=== PATIENT | male | born 1970 | race Caucasian/White ===

== ENCOUNTER 2019-04-06 13:46 | Emergency (ER) | payer SELFPAY ==
[2019-04-06 13:54] VITALS: BMI 32.5
[2019-04-06] MEDS ORDERED: LACTATED RINGERS SOLUTION 1000 ML INFUS.BAG IV ONE (14:10)
[2019-04-06] MEDS ORDERED: FAMOTIDINE 20 MG/50 ML IVPB 20 MG/50 ML MG IVPB ONE ×2 (14:10)
[2019-04-06] MEDS ORDERED: methylPREDNISolone NA SUCC 125 MG/2 ML VIAL ONE (14:10)
[2019-04-06] MEDS ORDERED: methylPREDNISolone NA SUCC 125 MG/2 ML VIAL IVPUSH ONE (14:10)
[2019-04-06] MEDS ORDERED: ALBUTEROL SO4 0.083% IH SOL 2.5 MG/3 ML VIAL.NEB. NEB ONE ×2 (14:11→14:15)
--- NOTE | 2019-04-06 14:40 | EKG ---
Test Reason : Blood Pressure : / mmHG Vent. Rate : 097 BPM Atrial Rate : 097 BPM P-R Int : 178 ms QRS Dur : 092 ms QT Int : 368 ms P-R-T Axes : 029 048 008 degrees QTc Int : 467 ms NORMAL SINUS RHYTHM NORMAL ECG NO PREVIOUS ECGS AVAILABLE Confirmed by MD AVA, DEIDRE ([id number]) on 04/06/2019 2:39:58 PM Referred By: Confirmed By:DEIDRE ESCALANTE MD
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
[2019-04-06 14:45] LABS: BASO % 1.2 % (0-2.0); EOS % 2.4 % (0-4.5); HEMOGLOBIN 15.6 GM/dL (11.7-16.9); LYMPH % 28.8 % (8-40); MCH 31.5 pg (25.7-33.7); MEAN CELL VOLUME 92.5 fl (80-96); MEAN PLT VOLUME 8.1 fl (7.5-11.1); MONO % 5.6 % (3.8-10.2); PLATELET COUNT 356 K/MM3 (134-434); RBC 4.97 M/mm3 (4.00-5.60); RDW 13.7 % (11.9-15.9); WHITE BLOOD COUNT 9.9 K/mm3 (4.0-10.0)
--- NOTE | 2019-04-06 14:55 | PDOC ---
Attending Attestation - Resident Resident Name: Jordan - ED Attending Attestation I have performed the following: I have examined & evaluated the patient, The case was reviewed & discussed with the resident, I agree w/resident's findings & plan - HPI HPI: 04/06/19 15:44 48-year-old male with history of chronic back pain from lumbar disc disease, bradycardia, lymes disease, and HTN(not on medication) presenting with anterior chest pain and rash that developed this morning. He was recently started on gabapentin which she has been taking as directed since yesterday. This morning he started developing aches in his knees and then progressed to a rash on his torso, associated with changes in his voice which is deeper to him. No shortness of breath, no nausea vomiting or diarrhea, no headache or dizziness. No fevers or chills. 04/06/19 16:56 - Physicial Exam PE: 04/06/19 14:54 Vital Signs Temp Pulse Resp BP Pulse Ox 98.1 F 90 18 145/109 H 100 04/06/19 13:50 04/06/19 14:47 04/06/19 14:47 04/06/19 14:47 04/06/19 14:47 Agree with the resident's HPI and PE as documented in the electronic medical record. NAD, well appearing, EOMI, PERRL, nl conjunctiva, anicteric; airway intact, normal phonation, uvula midline. no tonsillar hypertrophy. neck supple. lungs clear, no wheezing. +tachy, no murmur. abdomen soft nontender. no rebound, guarding. Back nontender. RAMOS x4, no focal neuro deficits. No peripheral edema. normal color for ethnicity, WWP. maculopapular rash over chest/torso, lower legs on thighs. small superficial abrasions on the left anterior benavides. 04/06/19 14:54 04/06/19 18:19 - Medical Decision Making 04/06/19 15:44 Vital Signs Temp Pulse Resp BP Pulse Ox 98.1 F 90 18 145/109 H 100 04/06/19 13:50 04/06/19 14:47 04/06/19 14:47 04/06/19 14:47 04/06/19 14:47 DDx. allergic reaction: hypersensitivity reaction, allergic reaction, anaphylaxis, hives/urticaria. drug rash. dermatitis. serum sickness. vasculitis. medication side effect. - VS reviewed +tachy and hypertensive, but also very anxious. -No fevers or systemic findings, clinically well appearing. no mucosal involvement so doubt SJS/TEN. airway patent, doubt anaphylaxis or Dress syndrome. - labs and lytes wnl. trop neg, doubt cardiac or ACS Chest x-ray is clear, electrolytes and troponin are negative. VS on recheck much improved. no longer tachy. normotensive - No evidence of erythema multiforme, SJS/TEN, Lyme, cellulitis, necrotizing fasciitis, no angioedema, meningococcemia, rosemarie mountain spotted fever. - given steroids, benadryl, pepcid with clinical improvement. VS wnl, stable, no hypotension. - instructions on avoiding triggers, rx epi pen with refill, directions and use indications reviewed and understood; prednisone x 3 more days, benadryl Q6-8 hr ATC x 3 days, pepcid for dual antihistamine relief. Does not appear at this time to be erythema multiforme, bullous, SJS, TEN; no evidence at this time to suggest RMSF or endocarditis or Lyme disease; patient looks well, nontoxic and is tolerating oral intake; no neurologic signs or symptoms; no headache or photophobia or neck pain; no ev of sepsis; question viral exanthem; afebrile; appropriate for initial o/p tx; d/w pt importance of f /u and pt agrees/understands; told pt to return to nearest ER immediately for any worsening sx incl but not limited to: fever, spreading rash, pain, sore throat, headache, dizziness, chest pain, trouble breathing, or any ssx concerning to the patient. I did d/w pt the aforementioned ddx as possibilities and pt understands to f/u even if better and to return to ER if un-changed/ worse. Pt understands these instructions on d/c and is comfortable with discharge plan. teaching young referral given. 04/06/19 18:20 Heart Score/ECG Review #1 ECG reviewed & interpreted by me at: 13:50 General ECG Interpretation: Sinus Rhythm, Normal Rate, Normal Intervals Compared to previous ECG there are: Previous ECG unavail 04/06/19 15:48 EKG normal sinus rhythm 97 bpm, no interval abnormalities, narrow QRS, ST and T wave segments and morphology normal. Nonspecific T wave abnormalities in III, AVF, TWI in III
[2019-04-06 15:58] LABS: ALBUMIN 4.3 g/dl (3.4-5.0); BILIRUBIN,TOTAL 0.7 mg/dL (0.2-1); BLOOD UREA NITROGEN 16.8 mg/dL (7-18); CALCIUM 9.5 mg/dL (8.5-10.1); CREATININE 1.1 mg/dL (0.55-1.3); MAGNESIUM 2.3 mg/dL (1.8-2.4); TOT PROT 8.4 g/dl (6.4-8.2)
[2019-04-06 18:21] VITALS: BP 129/85; PULSE 67; TEMP 97.6
== END 2019-04-06 18:21 | disposition home or self-care (01) ==
LOC: JER 13:46
PROC: 3E0F7GC Introduction of Other Therapeutic Substance into Respiratory Tract, Via Natural or Artificial Opening (ICD-10-PCS; principal; 2019-04-06)
PROC: 3E033GC Introduction of Other Therapeutic Substance into Peripheral Vein, Percutaneous Approach (ICD-10-PCS; 2019-04-06)
DX: R07.89 Other chest pain (principal); T78.40XA Allergy, unspecified, initial encounter; X58.XXXA Exposure to other specified factors, initial encounter; I10 Essential (primary) hypertension; Z88.6 Allergy status to analgesic agent
CPT/HCPCS: 36415; 71045-TC-FY; 80053; 83735; 84484; 85025; 93005; 93010; 99285-25